=== PATIENT | male | born 1945 | race Caucasian/White ===

== ENCOUNTER → 2016-09-20 | Outpatient (REF) | payer MEDICARE | LOC: M SFHCCLAY 08:28 | PROVIDERS: ATTEND Family Medicine | DX: E11.9 Type 2 diabetes mellitus without complications (principal); Z53.8 Procedure and treatment not carried out for other reasons ==

== ENCOUNTER → 2016-09-21 | Outpatient (REF) | payer MEDICARE ==
[2016-09-21 12:45] LABS: ANION GAP 7 MEQ/L (8-16); BLOOD UREA NITROGEN 23 MG/DL (7-18); CARBON DIOXIDE LEVEL 30 MEQ/L (21-32); CHLORIDE LEVEL 103 MEQ/L (98-107); CREATININE FOR GFR 0.94 MG/DL (0.70-1.30); GLOMERULAR FILTRATION RATE > 60.0 (>42); GLUCOSE, FASTING 173 MG/DL (83-110); POTASSIUM SERUM 4.1 MEQ/L (3.5-5.1); SODIUM LEVEL 140 MEQ/L (136-145)
== END ==
LOC: M SFHCCLAY 06:57
PROVIDERS: ATTEND Family Medicine
DX: E11.9 Type 2 diabetes mellitus without complications (principal)

== ENCOUNTER → 2016-12-22 | Outpatient (REF) | payer MEDICARE | LOC: M SFHCCLAY 16:56 | PROVIDERS: ATTEND Family Medicine | DX: E11.9 Type 2 diabetes mellitus without complications (principal); I10 Essential (primary) hypertension ==

== ENCOUNTER → 2016-12-25 | Outpatient (REF) | payer MEDICARE ==
[2016-12-25 12:01] LABS: ANION GAP 6 MEQ/L (8-16); BLOOD UREA NITROGEN 28 MG/DL (7-18); CALCIUM LEVEL 8.5 MG/DL (8.8-10.2); CARBON DIOXIDE LEVEL 29 MEQ/L (21-32); CHLORIDE LEVEL 105 MEQ/L (98-107); CREATININE FOR GFR 0.88 MG/DL (0.70-1.30); GLOMERULAR FILTRATION RATE > 60.0 (>42); GLUCOSE, FASTING 159 MG/DL (83-110); POTASSIUM SERUM 4.2 MEQ/L (3.5-5.1); SODIUM LEVEL 140 MEQ/L (136-145)
== END ==
LOC: M SFHCCLAY 07:00
PROVIDERS: ATTEND Family Medicine
DX: I10 Essential (primary) hypertension (principal); E11.9 Type 2 diabetes mellitus without complications

== ENCOUNTER → 2017-02-28 | Outpatient (REF) | payer MEDICARE | LOC: M SFHCCLAY 11:39 | PROVIDERS: ATTEND Family Medicine | DX: E11.9 Type 2 diabetes mellitus without complications (principal) | CPT/HCPCS: 82043; G0463 ==

== ENCOUNTER → 2017-06-07 | Outpatient (REF) | payer MEDICARE ==
[2017-06-07 11:54] LABS: MEAN CORPUSCULAR HEMOGLOBIN 30.8 pg (27.0-33.0); MEAN CORPUSCULAR HGB CONC 32.9 g/dl (32.0-36.5); MEAN CORPUSCULAR VOLUME 93.8 fl (80.0-96.0); PLATELET COUNT, AUTOMATED 223 10^3/uL (150-450); RED CELL DISTRIBUTION WIDTH 12.9 % (11.5-14.5); WHITE BLOOD COUNT 7.4 10^3/uL (4.0-10.0)
[2017-06-07 12:37] LABS: ALBUMIN/GLOBULIN RATIO 1.38 (1.00-1.93); ALKALINE PHOSPHATASE 46 U/L (45-117); ALT/SGPT 24 U/L (12-78); ANION GAP 8 MEQ/L (8-16); AST/SGOT 14 U/L (7-37); BILIRUBIN,TOTAL 0.4 MG/DL (0.2-1.0); BLOOD UREA NITROGEN 29 MG/DL (7-18); CALCIUM LEVEL 8.6 MG/DL (8.8-10.2); CARBON DIOXIDE LEVEL 29 MEQ/L (21-32); CHLORIDE LEVEL 107 MEQ/L (98-107); CREATININE FOR GFR 1.12 MG/DL (0.70-1.30); GLOMERULAR FILTRATION RATE > 60.0 (>42); GLUCOSE, FASTING 162 MG/DL (83-110); POTASSIUM SERUM 4.2 MEQ/L (3.5-5.1); SODIUM LEVEL 144 MEQ/L (136-145); TOTAL PROTEIN 6.9 GM/DL (6.4-8.2)
== END ==
LOC: M SFHCCLAY 08:06
PROVIDERS: ATTEND Family Medicine
DX: I10 Essential (primary) hypertension (principal); E11.9 Type 2 diabetes mellitus without complications

== ENCOUNTER → 2017-06-07 | Outpatient (CLI) | payer MEDICARE ==
--- NOTE | 2017-06-07 09:24 | REP ---
CHEST, TWO VIEWS: COMPARISON: 08/18/2014. There is no evidence of acute infiltrate. No pleural effusion is seen. The heart is normal in size. The mediastinal silhouette is unremarkable. The visualized osseous structures are intact. There are mild degenerative changes of the spine. IMPRESSION: No acute pulmonary disease.
== END ==
LOC: M CLY 08:13
PROVIDERS: ATTEND Family Medicine
DX: I48.2 Chronic atrial fibrillation (principal); I10 Essential (primary) hypertension; E11.9 Type 2 diabetes mellitus without complications

== ENCOUNTER → 2017-09-04 | Outpatient (REF) | payer MEDICARE ==
[2017-09-04 12:27] LABS: ANION GAP 9 MEQ/L (8-16); BLOOD UREA NITROGEN 23 MG/DL (7-18); CALCIUM LEVEL 8.8 MG/DL (8.8-10.2); CARBON DIOXIDE LEVEL 30 MEQ/L (21-32); CHLORIDE LEVEL 102 MEQ/L (98-107); CREATININE FOR GFR 0.99 MG/DL (0.70-1.30); GLOMERULAR FILTRATION RATE > 60.0 (>42); GLUCOSE, FASTING 214 MG/DL (70-100); POTASSIUM SERUM 3.9 MEQ/L (3.5-5.1); SODIUM LEVEL 141 MEQ/L (136-145)
[2017-09-04 14:05] LABS: ESTIMATED AVERAGE GLUCOSE 163 MG/DL (60-110); HEMOGLOBIN A1c 7.3 %
== END ==
LOC: M SFHCCLAY 09:08
DX: E11.9 Type 2 diabetes mellitus without complications (principal); I10 Essential (primary) hypertension
CPT/HCPCS: 83036

== ENCOUNTER → 2017-12-18 | Outpatient (REF) | payer MEDICARE ==
[2017-12-19 11:56] LABS: ANION GAP 9 MEQ/L (8-16); BLOOD UREA NITROGEN 25 MG/DL (7-18); CALCIUM LEVEL 8.6 MG/DL (8.8-10.2); CARBON DIOXIDE LEVEL 29 MEQ/L (21-32); CHLORIDE LEVEL 104 MEQ/L (98-107); CREATININE FOR GFR 1.03 MG/DL (0.70-1.30); GLOMERULAR FILTRATION RATE > 60.0 (>42); GLUCOSE, FASTING 158 MG/DL (70-100); POTASSIUM SERUM 3.6 MEQ/L (3.5-5.1); SODIUM LEVEL 142 MEQ/L (136-145)
[2017-12-19 12:42] LABS: HEP C VIRUS AB SCREEN MEDICARE 0.1 INDEX (<0.8)
[2017-12-19 13:29] LABS: ESTIMATED AVERAGE GLUCOSE 157 MG/DL (60-110); HEMOGLOBIN A1c 7.1 %
== END ==
LOC: M SFHCCLAY 14:20
DX: Z11.59 Encounter for screening for other viral diseases (principal); E11.9 Type 2 diabetes mellitus without complications; I10 Essential (primary) hypertension
CPT/HCPCS: 83036

== ENCOUNTER 2018-02-08 06:33 | Day surgery (SDC) | payer MEDICARE ==
[2018-02-08] MEDS ORDERED: NS 1,000 ML IV (07:15)
[2018-02-08] MEDS ORDERED: LIDOCAINE 2% INJ 100 MG/5 ML SDV (FOR ANES.) As Ordered (07:18)
[2018-02-08] MEDS ORDERED: PROPOFOL 200 MG/20 ML VIAL As Ordered (07:18)
== END 2018-02-08 08:19 | disposition home or self-care (01) ==
LOC: M OPP 06:33
DX: Z12.11 Encounter for screening for malignant neoplasm of colon (principal); Z86.010 Personal history of colon polyps; K57.30 Diverticulosis of large intestine without perforation or abscess without bleeding; K64.8 Other hemorrhoids; I48.91 Unspecified atrial fibrillation; I10 Essential (primary) hypertension; E78.5 Hyperlipidemia, unspecified; E11.9 Type 2 diabetes mellitus without complications; M19.90 Unspecified osteoarthritis, unspecified site; G47.30 Sleep apnea, unspecified; H40.9 Unspecified glaucoma; Z88.8 Allergy status to other drugs, medicaments and biological substances; Z79.01 Long term (current) use of anticoagulants; Z79.84 Long term (current) use of oral hypoglycemic drugs; Z79.899 Other long term (current) drug therapy; Z80.0 Family history of malignant neoplasm of digestive organs
CPT/HCPCS: G0105

== ENCOUNTER → 2018-03-07 | Outpatient (CLI) | payer MEDICARE | LOC: M CLY 14:57 | DX: M75.41 Impingement syndrome of right shoulder (principal); M85.811 Other specified disorders of bone density and structure, right shoulder | CPT/HCPCS: 73030 ==

== ENCOUNTER → 2018-04-24 | Outpatient (REF) | payer MEDICARE | LOC: M SFHCCLAY 14:06 | DX: E11.9 Type 2 diabetes mellitus without complications (principal) ==

== ENCOUNTER → 2018-04-25 | Outpatient (REF) | payer MEDICARE ==
[2018-04-25 19:32] LABS: CREATININE, URINE < 13.0 MG/DL; MALB URINE SIEMENS < 5.0 MG/L
[2018-04-25 19:34] LABS: ESTIMATED AVERAGE GLUCOSE 154 MG/DL (60-110)
[2018-04-25 19:40] LABS: MAU/CREAT RATIO 38.5 MCG/MG (0.0-30.0)
== END ==
LOC: M SFHCCLAY 09:52
DX: E11.9 Type 2 diabetes mellitus without complications (principal)
CPT/HCPCS: 83036

== ENCOUNTER → 2018-07-22 | Outpatient (REF) | payer MEDICARE ==
[~2018-07-22] MED LIST: AMIL25TA PO; AMLO10TA5 PO; CARV25TA PO; ELIQ5TAB PO; FURO40TA2 PO; GLIM4TAB PO; INVO100T PO; KLOR20TA42 PO; LOSARTAN/HCT PO; METF-415 PO; SIMV20TA2 PO
[2018-07-22 12:40] LABS: ALBUMIN 3.9 GM/DL (3.2-5.2); ALT/SGPT 27 U/L (12-78); BILIRUBIN,TOTAL 0.7 MG/DL (0.2-1.0); BLOOD UREA NITROGEN 22 MG/DL (7-18); CALCIUM LEVEL 8.6 MG/DL (8.8-10.2); CARBON DIOXIDE LEVEL 29 MEQ/L (21-32); CHLORIDE LEVEL 104 MEQ/L (98-107); CREATININE FOR GFR 0.93 MG/DL (0.70-1.30); GLOMERULAR FILTRATION RATE > 60.0 (>42); GLUCOSE, FASTING 215 MG/DL (70-100); POTASSIUM SERUM 4.1 MEQ/L (3.5-5.1); SODIUM LEVEL 141 MEQ/L (136-145); TOTAL PROTEIN 6.5 GM/DL (6.4-8.2)
[2018-07-23 11:31] LABS: ALBUMIN 3.98 GM/DL (3.29-5.55); ALBUMIN % 61.2 % (55.8-66.1); ALPHA-1-GLOBULIN % 4.5 % (2.9-4.9); ALPHA-1-GLOBULINS 0.29 GM/DL (0.17-0.41); ALPHA-2-GLOBULINS 0.88 GM/DL (0.42-0.99); ALPHA-2-GLOBULINS % 13.5 % (7.1-11.8); BETA-1-GLOBULINS 0.42 GM/DL (0.28-0.60); BETA-1-GLOBULINS % 6.5 % (4.7-7.2); BETA-2-GLOBULINS % 5.5 % (3.2-6.5); GAMMA GLOBULIN % 8.8 % (11.1-18.8)
[2018-07-23 11:32] LABS: BETA-2-GLOBULINS 0.36 GM/DL (0.19-0.55); GAMMA GLOBULINS 0.57 GM/DL (0.65-1.58)
== END ==
LOC: M SFHCCLAY 07:59
PROVIDERS: ATTEND Family Medicine
DX: M54.40 Lumbago with sciatica, unspecified side (principal); I10 Essential (primary) hypertension; E11.9 Type 2 diabetes mellitus without complications

== ENCOUNTER → 2018-10-24 | Outpatient (REF) | payer MEDICARE ==
[2018-10-24 12:45] LABS: BLOOD UREA NITROGEN 26 MG/DL (7-18); CALCIUM LEVEL 9.1 MG/DL (8.8-10.2); CARBON DIOXIDE LEVEL 30 MEQ/L (21-32); CHLORIDE LEVEL 105 MEQ/L (98-107); CREATININE FOR GFR 1.11 MG/DL (0.70-1.30); GLOMERULAR FILTRATION RATE > 60.0 (>42); GLUCOSE, FASTING 263 MG/DL (70-100); POTASSIUM SERUM 4.2 MEQ/L (3.5-5.1); SODIUM LEVEL 141 MEQ/L (136-145)
[2018-10-24 12:55] LABS: HEMOGLOBIN A1c 7.9 %
== END ==
LOC: M SFHCCLAY 08:22
PROVIDERS: ATTEND Family Medicine
DX: E11.9 Type 2 diabetes mellitus without complications (principal)

== ENCOUNTER → 2018-11-07 | Outpatient (REF) | payer MEDICARE ==
[2018-11-07 11:54] LABS: INR 1.03; PROTHROMBIN TIME 13.6 SECONDS (12.1-14.4)
[2018-11-07 11:55] LABS: PARTIAL THROMBOPLASTIN TIME 43.2 SECONDS (25.4-37.6)
== END ==
LOC: M LABDRAW1 11:11 → M LABDRAWC 11:11
PROVIDERS: ATTEND Physician Assistant
DX: Z01.812 Encounter for preprocedural laboratory examination (principal)

== ENCOUNTER → 2019-01-02 | Outpatient (REF) | payer MEDICARE ==
[2019-01-02 17:35] LABS: INR 1.2; PROTHROMBIN TIME 14.9 SECONDS (11.8-14.0)
[2019-01-02 17:37] LABS: PARTIAL THROMBOPLASTIN TIME 46.2 SECONDS (25.0-38.4)
== END ==
LOC: M LABDRAWC 16:30
PROVIDERS: ATTEND Physician Assistant
DX: Z01.812 Encounter for preprocedural laboratory examination (principal)

== ENCOUNTER → 2019-01-06 | Outpatient (CLI) | payer MEDICARE ==
[~2019-01-06] MED LIST changes: +ACET500T15 PO; +AMIL5TAB4 PO; +AMLO10TA PO; +BRIM1OPD OD; +GABA-843 PO; -GLIM4TAB PO; +GLIM4TAB5 PO; +JARD1TAB PO; +LOSA100T5 PO; +METF-791 PO; +OMEG350C PO; -SIMV20TA2 PO; +SIMV20TA22 PO
== END ==
LOC: M LAB 06:55
PROVIDERS: ATTEND Physical Medicine & Rehabilitation
DX: Z01.812 Encounter for preprocedural laboratory examination (principal)

== ENCOUNTER → 2019-02-20 | Outpatient (REF) | payer MEDICARE ==
[~2019-02-20] MED LIST changes: +GLIM4TAB PO; -GLIM4TAB5 PO; -METF-791 PO; +METF500T4 PO; +SIMV20TA2 PO; -SIMV20TA22 PO
[2019-02-20 11:36] LABS: INR 1.07; PROTHROMBIN TIME 13.7 SECONDS (11.8-14.0)
== END ==
LOC: M LAB REF 11:11
PROVIDERS: ATTEND Internal Medicine Hematology & Oncology
DX: Z79.01 Long term (current) use of anticoagulants (principal)

== ENCOUNTER → 2019-02-28 | Outpatient (REF) | payer MEDICARE ==
[2019-02-28 11:50] LABS: HEMATOCRIT 49.3 % (42.0-52.0); HEMOGLOBIN 16.8 g/dl (13.5-17.5); MEAN CORPUSCULAR HEMOGLOBIN 32.4 pg (27.0-33.0); MEAN CORPUSCULAR HGB CONC 34.1 g/dl (32.0-36.5); PLATELET COUNT, AUTOMATED 168 10^3/uL (150-450); RED BLOOD COUNT 5.19 10^6/uL (4.30-6.10); WHITE BLOOD COUNT 6.5 10^3/uL (4.0-10.0)
[2019-02-28 12:22] LABS: HEMOGLOBIN A1c 7.6 %
[2019-02-28 12:26] LABS: CREATININE, URINE < 13.0 MG/DL; MALB URINE SIEMENS < 5.0 MG/L
[2019-02-28 12:32] LABS: ALBUMIN 4.2 GM/DL (3.2-5.2); ALT/SGPT 32 U/L (12-78); BILIRUBIN,TOTAL 0.8 MG/DL (0.2-1.0); BLOOD UREA NITROGEN 18 MG/DL (7-18); CARBON DIOXIDE LEVEL 27 MEQ/L (21-32); CHLORIDE LEVEL 106 MEQ/L (98-107); CREATININE FOR GFR 0.94 MG/DL (0.70-1.30); GLOMERULAR FILTRATION RATE > 60.0 (>42); GLUCOSE, FASTING 203 MG/DL (70-100); POTASSIUM SERUM 3.8 MEQ/L (3.5-5.1); SODIUM LEVEL 141 MEQ/L (136-145)
== END ==
LOC: M SFHCCLAY 07:43
PROVIDERS: ATTEND Family Medicine
DX: I10 Essential (primary) hypertension (principal); E11.9 Type 2 diabetes mellitus without complications

== ENCOUNTER → 2019-03-03 | Outpatient (CLI) | payer MEDICARE ==
[~2019-03-03] MED LIST changes: +METF-791 PO; -METF500T4 PO
[2019-03-03 08:16] LABS: INR 0.99; PROTHROMBIN TIME 12.8 SECONDS (11.8-14.0)
[2019-03-03 08:17] LABS: PARTIAL THROMBOPLASTIN TIME 37.2 SECONDS (25.0-38.4)
== END ==
LOC: M LAB 07:32
PROVIDERS: ATTEND Internal Medicine Hematology & Oncology
DX: Z86.2 Personal history of diseases of the blood and blood-forming organs and certain disorders involving the immune mechanism (principal)